=== PATIENT | female | born 1955 | race Caucasian/White ===

== ENCOUNTER → 2025-09-10 | Outpatient (CLI) | payer MEDICARE, MEDICAID, SELFPAY ==
--- NOTE | 2025-09-10 15:55 | XR_ITS ---
Examination: Duplex scan of the lower extremity, unilateral right Date and time of exam: September 10, 2025, 1609 hours INDICATIONS: Upper outer thigh pain warmth swelling and hardening sensation beginning 3 weeks ago Technique: Duplex scan of the extremity veins using B-mode/grayscale imaging and Doppler spectral analysis and color flow Attention is directed to internal echogenicity, compression and augmentation involving these veins, color flow assessment, spectral analysis Findings: Major deep venous structures in the extremity demonstrate normal course and caliber. There is no evidence of deep vein thrombosis. Normal color flow and spectral analysis Impression: Negative for DVT Soft tissue upper outer right thigh heterogeneous mass 9.4 x 5.6 x 6.7 cm, differential would include hematoma, abscess not excluded, clinical correlation advised, recommend ultrasound follow-up.
== END | disposition home or self-care (01) ==
PROVIDERS: PCP Family Medicine; Referring Provider Family Medicine; Visit Provider Family Medicine
DX: R22.41 Localized swelling, mass and lump, right lower limb (principal)
CPT/HCPCS: 93971